=== PATIENT | female | born 1970 | race Caucasian/White ===

== ENCOUNTER 2017-05-24 16:42 | Emergency (ER) | payer OTHER ==
[2017-05-24 16:59] VITALS: BP 154/89; PULSE 97; RESP 18; TEMP 98.4; O2SAT 97
--- NOTE | 2017-05-24 17:28 | C.PDOC ---
History Of Present Illness 46 yr old female presents to the ER with right knee pain for the past 5 days. Patient reports the pain is worsened when she bends the knee and when she is standing. States the pain is constant. Reports she has tried Advil and Tylenol with no relief. Patient has history of obesity. Does not have PMD. Denies trauma , injuries, leg pain, foot pain, weakness or numbness. Time Seen by Provider: 05/24/17 17:10 Chief Complaint (Nursing): Lower Extremity Problem/Injury History Per: Patient History/Exam Limitations: no limitations Onset/Duration Of Symptoms: Days (5) Past Medical History Reviewed: Historical Data, Nursing Documentation, Vital Signs Vital Signs: Last Vital Signs Temp 98.4 F 05/24/17 16:57 Pulse 97 H 05/24/17 16:57 Resp 18 05/24/17 17:51 BP 154/89 H 05/24/17 16:57 Pulse Ox 97 05/24/17 17:42 - Medical History PMH: Depression Surgical History: Family History: States: Other - Social History Hx Tobacco Use: No Hx Alcohol Use: No (drank ETOH as s/a) Hx Substance Use: No - Immunization History Hx Tetanus Toxoid Vaccination: No Hx Influenza Vaccination: No Hx Pneumococcal Vaccination: No Review Of Systems Except As Marked, All Systems Reviewed And Found Negative. Musculoskeletal: Positive for: Other ((+) Right knee pain). Negative for: Leg Pain, Foot Pain Neurological: Negative for: Weakness, Numbness Physical Exam - Physical Exam Appears: Non-toxic, No Acute Distress Skin: Warm, Dry, No Rash Head: Atraumatic, Normacephalic Oral Mucosa: Moist Respiratory: Normal Breath Sounds, No Rales, No Rhonchi, No Stridor, No Wheezing Extremity: Tenderness (Right Knee - Tenderness to the inferior right lateral epicondyle, point tenderness), No Calf Tenderness, Capillary Refill (<2 secs), Other (No instability. No Warmth. Equal calf size bilateral. No homans signs.) Neurological/Psych: Oriented x3, Normal Speech, Normal Motor ED Course And Treatment O2 Sat by Pulse Oximetry: 97 (RA) Pulse Ox Interpretation: Normal - Other Rad X-Ray - Right Knee X-Ray: Viewed By Me, Read By Radiologist Interpretation: PROCEDURE: Right Knee Radiographs. HISTORY: Right knee pain. COMPARISON: None. FINDINGS: BONES: Normal. No fracture. JOINTS: Mild osteoarthritic changes. JOINT EFFUSION: None. OTHER FINDINGS: None. IMPRESSION: No evidence of fracture or dislocation. Mild osteoarthritic changes. Medical Decision Making Medical Decision Making: IMPRESSION: Arthritis PLAN: * X-Ray - Right Knee * Toradol IM Disposition - Disposition Referrals: [facility] [Outside] Disposition: HOME/ ROUTINE Disposition Time: 17:39 Condition: STABLE Additional Instructions: Dk, thank you for letting us take care of you today. Return to the ER if your symptoms worsen, or if any problems. Take the medication listed below as prescribed. You need to be re-evaluated. Please call the phone number listed below to make an appointment with the doctor at the [facility]. Prescriptions: Ibuprofen [Motrin Tab] 1 tab PO TID PRN #30 tab PRN Reason: Pain, Moderate (4-7) Instructions: Knee Pain (ED) Forms: [employer] (Burmese) Print Language: COSTA RICAN - Clinical Impression Clinical Impression: Knee pain, right - Scribe Statement The provider has reviewed the documentation as recorded by the Erin Yanez Provider Attestation: All medical record entries made by the Erin were at my direction and personally dictated by me. I have reviewed the chart and agree that the record accurately reflects my personal performance of the history, physical exam, medical decision making, and the department course for this patient. I have also personally directed, reviewed, and agree with the discharge instructions and disposition.
--- NOTE | 2017-05-24 17:48 | RAD ---
PROCEDURE: Right Knee Radiographs. HISTORY: Right knee pain COMPARISON: None. FINDINGS: BONES: Normal. No fracture. JOINTS: Mild osteoarthritic changes. JOINT EFFUSION: None. OTHER FINDINGS: None. IMPRESSION: No evidence of fracture or dislocation. Mild osteoarthritic changes.
== END 2017-05-24 17:52 | disposition home or self-care (01) ==
LOC: C.ER 16:42
DX: M25.561 Pain in right knee (principal)
CPT/HCPCS: 73562; 96372; 99284; J1885

== ENCOUNTER 2017-06-23 11:39 | Emergency (ER) | payer OTHER ==
[2017-06-23 11:39] VITALS: BMI 57.5
[2017-06-23 12:03] VITALS: RESP 18; TEMP 98.2
[2017-06-23] MEDS ORDERED: Dexamethasone 4 mg/1 ml IM STA (13:11)
[2017-06-23] MEDS ORDERED: Dexamethasone 4 mg/1 ml ONE (13:49)
--- NOTE | 2017-06-23 14:11 | C.PDOC ---
History Of Present Illness 46 yr old female presents to the ER with complaints of right leg pain for the past 1 month. Patient states the pain was initially in the right knee but now the pain is in the right hip region and worsened when she tries to stand up or walk. Patient denies trauma, dysuria, bowel/bladder incontinence, fall, back pain, rash to the area, weakness or numbness. Time Seen by Provider: 06/23/17 12:22 Chief Complaint (Nursing): Lower Extremity Problem/Injury History Per: Patient History/Exam Limitations: no limitations Onset/Duration Of Symptoms: Days (1 month) Past Medical History Reviewed: Historical Data, Nursing Documentation, Vital Signs Vital Signs: Last Vital Signs Temp 98.2 F 06/23/17 12:01 Pulse 73 06/23/17 12:01 Resp 18 06/23/17 12:01 BP 106/75 06/23/17 12:01 Pulse Ox 97 06/23/17 14:36 - Medical History PMH: Depression Surgical History: Family History: States: No Known Family Hx - Social History Hx Tobacco Use: No Hx Alcohol Use: No (drank ETOH as s/a) Hx Substance Use: No - Immunization History Hx Tetanus Toxoid Vaccination: No Hx Influenza Vaccination: No Hx Pneumococcal Vaccination: No Review Of Systems Except As Marked, All Systems Reviewed And Found Negative. Musculoskeletal: Positive for: Leg Pain (right), Other ((+) pain to the right hip region) Skin: Negative for: Rash Neurological: Negative for: Weakness, Numbness Physical Exam - Physical Exam Appears: Non-toxic, No Acute Distress Skin: Warm, Dry, No Rash Head: Atraumatic, Normacephalic Oral Mucosa: Moist Respiratory: Normal Breath Sounds, No Rales, No Rhonchi, No Stridor, No Wheezing Gastrointestinal/Abdominal: Normal Exam, Soft, No Tenderness, No Guarding, No Rebound Back: Normal Inspection, No CVA Tenderness Extremity: No Calf Tenderness, Other (Pain with internal rotation of the right hip. No tenderness to the right knee.) Neurological/Psych: Oriented x3, Normal Speech, Normal Motor, Normal Sensation Gait: Steady ED Course And Treatment O2 Sat by Pulse Oximetry: 97 (RA) Pulse Ox Interpretation: Normal - Other Rad Hip xray X-Ray: Interpreted by Me Interpretation: No fracture or dislocation Medical Decision Making Medical Decision Making: PLAN: * X-Ray - Right Hip w/ Pelvis * Decadron IM * Toradol IM NOTE: Old records were reviewed which shows patient was last seen in May,, had XRay done which showed only mild arthritis. On re-exam, the patient reports improvement of symptoms. Lungs are CTA, heart is RRR, Abdomen is soft, non-tender and the patient is tolerating PO well. Pt is ambulatory in the ED with steady gait. Follow up with the medical doctor/ clinic within 1-2 days. Return if worsened. Disposition - Disposition Referrals: [facility] [Outside] Disposition: HOME/ ROUTINE Disposition Time: 14:26 Condition: GOOD Additional Instructions: Follow up with the medical doctor/clinic within 1-2 days. Return if worsened. Prescriptions: Cyclobenzaprine [Cyclobenzaprine HCl] 10 mg PO BID #14 tab Naproxen [Naprosyn] 500 mg PO BID #20 tab Instructions: Sciatica (ED), Groin Strain (ED) Forms: [employer] (Guamanian), Work Excuse Print Language: ARMENIAN - Clinical Impression Clinical Impression: Lumbar radiculopathy, Groin pain - PA / MANAGER INDUSTRIAL / Resident Statement MD/DO has reviewed & agrees with the documentation as recorded. - Scribe Statement The provider has reviewed the documentation as recorded by the Scribe Sandra Yanez All medical record entries made by the Erin were at my direction and personally dictated by me. I have reviewed the chart and agree that the record accurately reflects my personal performance of the history, physical exam, medical decision making, and the department course for this patient. I have also personally directed, reviewed, and agree with the discharge instructions and disposition.
[2017-06-23 14:52] VITALS: BP 100/60; PULSE 77; O2SAT 100
--- NOTE | 2017-06-23 14:54 | RAD ---
Indication: Hip pain Right hip with pelvis Comparison: None available Findings: Examination limited by habitus. No acute displaced fracture or dislocation identified. Well corticated calcification/ossification adjacent to the left iliac wing. Sacroiliac joints appear intact. Mild constipation. Soft tissues appear unremarkable. No evidence of radiopaque foreign body. Impression: No acute displaced fracture or dislocation evident. If high clinical index of suspicion, suggest cross-sectional imaging for further evaluation. Otherwise, if symptoms persist or if there is continued clinical concern, x-ray follow-up in 7-10 days should be considered.
== END 2017-06-23 14:51 | disposition home or self-care (01) ==
LOC: C.ER 11:39
DX: M54.16 Radiculopathy, lumbar region (principal); R10.31 Right lower quadrant pain
CPT/HCPCS: 73502; 96372; 99284; J1100; J1885

== ENCOUNTER 2018-03-13 20:12 | Emergency (ER) | payer SELFPAY ==
[2018-03-13 20:13] VITALS: BMI 57.5
[2018-03-13] MEDS ORDERED: Tdap Vaccine 0.5 ml Vial (10-64 yrs) IM ONE ×2 (20:35→21:11)
[2018-03-13 20:50] VITALS: BP 128/80; PULSE 81; RESP 18; TEMP 99.1; O2SAT 98
--- NOTE | 2018-03-13 21:24 | C.PDOC ---
History Of Present Illness 47-year-old female presents for evaluation of a dog bite to the left wrist s/p attempting to break up a dog fight 3 days ago. Patient reports she was bit by her own dog, a grant redding, whose vaccines are all up to date. She cleaned the wound with alcohol and peroxide, applied [id number] antibiotic ointment. Of note patient is already on Augmentin following a recent tooth extraction with her dentist. Patient noticed the area appears more bruised and swollen, prompting this ED visit. Tetanus not up to date. Patient also reports her hand sometimes feels cold. Otherwise no numbness, weakness or limited motion. Time Seen by Provider: 03/13/18 20:24 Chief Complaint (Nursing): Abnormal Skin Integrity History Per: Patient History/Exam Limitations: no limitations Onset/Duration Of Symptoms: Days Current Symptoms Are (Timing): Still Present Past Medical History Reviewed: Historical Data, Nursing Documentation, Vital Signs Vital Signs: Last Vital Signs Temp 99.1 F 03/13/18 20:49 Pulse 81 03/13/18 20:49 Resp 18 03/13/18 20:49 BP 128/80 03/13/18 20:49 Pulse Ox 98 03/13/18 20:49 - Medical History PMH: Depression Denies: Diabetes, Hepatitis, HIV, HTN (PT DENIES), Hyperlipidemia, Chronic Kidney Disease, Seizures, Sexually Transmitted Disease Surgical History: Family History: States: Unknown Family Hx - Social History Hx Tobacco Use: No Hx Alcohol Use: No (drank ETOH as s/a) Hx Substance Use: No - Immunization History Hx Tetanus Toxoid Vaccination: No Hx Influenza Vaccination: No Hx Pneumococcal Vaccination: No Review Of Systems Except As Marked, All Systems Reviewed And Found Negative. Constitutional: Negative for: Fever Musculoskeletal: Positive for: Hand Pain (Left wrist, +swelling) Skin: Positive for: Bruising (to wrist), Other (dog bite to left wrist). Negative for: Rash Neurological: Negative for: Weakness, Numbness, Incoordination Physical Exam - Physical Exam Appears: Well, Non-toxic, No Acute Distress Skin: Warm, Dry Head: Atraumatic, Normacephalic Eye(s): bilateral: Normal Inspection Chest: Symmetrical Respiratory: No Accessory Muscle Use, Other (speaking in full sentences) Extremity: Tenderness (mild tenderness to bite wound), Capillary Refill (less than 2 sec to all digits), Other (2 superficial puncture wounds to dorsal aspect of left wrist, with irregular-shaped wound, approx. 1 cm, and scabbing to the volar wrist, and small abrasions to volar wrist; +ecchymoses throughout both sides; no bleeding, discharge, or odor) Pulses: Left Radial: Normal, Right Radial: Normal Neurological/Psych: Oriented x3, Normal Speech, Normal Motor, Normal Sensation ED Course And Treatment O2 Sat by Pulse Oximetry: 98 (RA) Pulse Ox Interpretation: Normal Medical Decision Making Medical Decision Making: Impression: Dog bite Plan: * Tdap booster Patient seen and evaluated by ED attending Dr. Blanco, who recommends ordering x- ray for further evaluation. Xray shows soft tissue swelling, no fracture. Patient already on antibiotic Augmentin. Advise patient on wound care and she was stable for discharge. Instruct to return to ED for any streaking, increased redness, swelling, discharge or sensory changes. Disposition Counseled Patient/Family Regarding: Diagnosis, Need For Followup - Disposition Disposition: HOME/ ROUTINE Disposition Time: 21:35 Condition: GOOD Additional Instructions: Lave las heridas diariamente con agua y jabn zahraa medicamentos para el dolor segn sea necesario zahraa antibiticos Meenakshi un seguimiento con grimes mdico en ba semana para verificar la herida Vuelva a la emily de emergencias si se presenta fiebre, enrojecimiento o hinchazn alrededor de la herida aumenta o vetas, cualquier pus en la herida. Instructions: Animal Bite (ED) Print Language: ROMANIAN - POA Present On Arrival: None - Clinical Impression Clinical Impression: Dog bite - PA / ADVERTISING STATISTICAL CLERK / Resident Statement MD/DO has reviewed & agrees with the documentation as recorded. - Scribe Statement The provider has reviewed the documentation as recorded by the Scribe (Ana Maria Haile) All medical record entries made by the Scribe were at my direction and personally dictated by me. I have reviewed the chart and agree that the record accurately reflects my personal performance of the history, physical exam, medical decision making, and the department course for this patient. I have also personally directed, reviewed, and agree with the discharge instructions and disposition.
--- NOTE | 2018-03-14 15:15 | RAD ---
Date of service: 03/13/2018 PROCEDURE: Left Wrist Radiographs. HISTORY: pain s.p dog bite COMPARISON: None. FINDINGS: BONES: Normal. No fracture. No obvious cortical destructive changes. JOINTS: Normal. No dislocation. SOFT TISSUES: No gross subcutaneous emphysema or opaque foreign bodies. OTHER FINDINGS: None. IMPRESSION: No evidence of acute displaced fracture nor dislocation. No cortical destructive changes seen.
== END 2018-03-13 21:30 | disposition home or self-care (01) ==
LOC: C.ER 20:12
DX: S61.532A Puncture wound without foreign body of left wrist, initial encounter (principal); W54.0XXA Bitten by dog, initial encounter